=== PATIENT | female | born 1940 | race Caucasian/White ===

== ENCOUNTER → 2017-01-30 | Outpatient (CLI) | payer OTHER, BC ==
[~2017-01-30] VITALS: Ht 157.5 cm; Wt 76.2 kg
[~2017-01-30] MED LIST: ACETAMINOPHEN325 M1 PO; ADIPEX-P37.5 M1 PO; ASPIR 8181 MG PO; ASPIRIN EC81 M1 PO; ATENOLOL 100MG100 MG PO; BENTYL 10 MG CA10 M1 PO; BENTYL10 MG PO; BRILINTA90 MG PO; CARVEDILOL12.5 MG PO; CHLORTHALIDONE25 MG PO; CYTOMEL 25 MCG25 MC1 PO; CYTOMEL 25 MCG25 MCG PO; CYTOMEL50 MCG PO; GLUCOPHAGE500 MG PO; HYDROCHLOROTHIA25 M1 PO; HYDROCODON-ACE1 EAC7 PO; HYDROCODONE-AP1 EAC6 PO; KLOR-CON 1010 MEQ PO; KLOR-CON M2020 MEQ PO; LASIX 20 MG TAB20 MG PO; LUTEIN6 M1 PO; MELOXICAM7.5 MG PO; MULTIVITAMINS1 EAC6 PO; MULTIVITAMINS1 EAC7 PO; NABUMETONE 500500 M1 PO; NEURONTIN 300300 M1 PO; OMEGA-31000 M1 PO; OMEPRAZOLE 20 M20 M1 PO; PRAVASTATIN SOD40 MG PO; PROBIOTIC1 EAC1 PO; RAMIPRIL5 MG PO; REVATIO20 MG PO; SLOW-MAG64 M1 PO; TRAMADOL 50 MG50 MG PO; TUMS CHEWA500 MG/11 PO; VITAMIN B-12 PO; VITAMIN B12-FO1 EAC1 PO; VITAMIN D-32000 UNIT PO; VITAMIN D2000 UNIT PO; VITAMIN D35000 UNI1 PO
--- NOTE | ~2017-01-30 | HPC ---
[facility] [place] [address] PAIN MANAGEMENT CONSULTATION Name: ASMITA OSORIO Room #: [facility] [id number] Admission: 01/30/17 Attend Phys: Bonifacio Kc DO Discharge: Date of : 41 Report #: [id number] THIS REPORT FOR: //name// CC: Damien Horn MD DATE OF SERVICE: 01/30/2017 REFERRING PHYSICIAN: Damien Lomeli M.D. CHIEF COMPLAINT: Low back pain, right lower extremity pain and paresthesias. HISTORY OF PRESENT ILLNESS: As you know, the patient is a 76-year-old female returning in followup visit reporting pain score 3-4/10, states pain her pain is chronic in nature, describes pain as aching, exacerbated with standing, improves with medications and rest. She returns today in followup visit to discuss treatment options. As you are aware, the patient suffers from symptomatic lumbar radiculopathy secondary to progressively worsening spinal stenosis of the lumbar spine. We have discussed with the patient treatment options over a period of approximately 5 years. She returns today in followup visit with recurrence of symptoms for which she wishes to discuss treatment options. She has been doing fairly well with hydrocodone, gabapentin, and nabumetone therapy. She returns requesting refill on these medications. She also wishes to discuss whether or not new options for treatment are available including possibility of surgical options. She returns to discuss these today and receive refills on medications. ALLERGIES: No known drug allergies. CURRENT MEDICATIONS: Hydrocodone, nabumetone, gabapentin, cholecalciferol, phentermine, potassium chloride, hydrochlorothiazide, metformin, omega 3 fish oil, Lutein, pravastatin, omeprazole, dicyclomine, aspirin, atenolol and Brilinta. SOCIAL HISTORY: The patient denies tobacco, alcohol, IV or illicit drug use. She has been retired, retired almost 22 years ago, unaccompanied today. IMAGING: No new imaging available. PHYSICAL EXAMINATION: VITAL SIGNS: Blood pressure 139/62, pulse 64, respiratory rate 16, unlabored. The patient is 97% on room air, height 5 feet 2 inches tall, weighs 168 pounds, BMI calculated 30.7. GENERAL: Well developed, well nourished, well hydrated 76-[place] [address] PAIN MANAGEMENT CONSULTATION Name: ASMITA OSORIO Room #: REG CLI [place]#: [id number] Admission: 01/30/17 Attend Phys: Bonifacio Kc DO Discharge: Date of : 41 Report #: [id number] appearing her stated age, placing current pain score 3-4/10. HEENT: Normocephalic, atraumatic. Pupils equal, round, reactive to light. Extraocular muscles are intact. Sclerae nonicteric without injection. NEUROLOGIC: Cranial nerves 2-12 grossly intact. Speech fluent. The patient deemed a good historian. LUNGS: Clear. No wheeze, rhonchi or rales. CARDIOVASCULAR: Regular. No appreciable gallop or rub. ABDOMEN: Soft, mildly obese, normoactive bowel sounds. EXTREMITIES: Show no clubbing, no cyanosis, no edema. MUSCULOSKELETAL: Lower extremity strength appears equal and symmetrical 5/5, some giveaway strength noted with hip flexion, knee extension on the right when compared to the left. Seated straight leg raising negative. Supine straight leg raising mildly positive right. Hector's test negative. Modified Gaenslen's positive for axial low back pain. Muscle bulk and tone equal and symmetrical. Ankle clonus negative. Babinski is negative. Gait antalgic favoring right lower extremity over left. ASSESSMENT: 1. Symptomatic lumbar radiculopathy. 2. Spinal stenosis of lumbar spine. 3. Displacement of lumbar intervertebral disk with radiculopathy. 4. Lumbosacral spondylosis with radiculopathy. 5. Lumbar degeneration. 6. Chronic intractable pain. PLAN: 1. The patient has returned today in followup visit where we have discussed treatment options for lumbar radicular pain secondary to spinal stenosis. It is felt that her continued right lower extremity symptoms are due to progressively worsening spinal stenosis. We have discussed with the patient our concerns about the progression of this disease and her increasing pain. At present, she feels she is doing fairly well, requesting medication management. We did discuss other options including spinal cord stimulator therapy, surgical options with the patient today. She is wishing to continue medication management at this juncture, but may consider the spinal cord stimulator and even surgical options if her pain does not improve with more conservative treatment. 2. The patient was provided a prescription of hydrocodone 5/325 one tab p.o. q. 8 hours p.r.n. for pain. I have given the patient #60, releases of today, 4 weeks from today, 2 months' worth of medication. I would like to see her back in 2 months to determine if interventional treatments might be necessary or possible referral for surgery. 3. The patient was provided refill prescription on gabapentin. We have increased her dose in hopes of improving pain. She will increase the dose as tolerated, increasing 300 mg every 7 days to reach better efficacious level and reduce her pain. She will contact our clinic once she has reached the level of medication that provides good analgesia. No major side effects. She was [facility] [place] [address] PAIN MANAGEMENT CONSULTATION Name: JOASMITA M [facility] [id number] Admission: 01/30/17 Attend Phys: Bonifacio Kc DO Discharge: Date of : 41 Report #: [id number] watched for side effects of somnolence, decreased mental acuity, disorientation, confusion with the use of this medication. 4. The patient will continue on nabumetone 500 mg dose 1 tab p.o. b.i.d. I have given the patient #120 tablets, three months' worth of medication. She is sending this off to her mail order. 5. We will see the patient back in followup visit on an as needed basis for interventional treatments and discuss further spinal cord stimulator therapy and even surgical options. <ELECTRONICALLY SIGNED> By: Bonifacio Kc DO 02/07/17 0937 [id number] [id number] Bonifacio Kc DO /nt
[2017-01-30 13:50] VITALS: BP 139/62
== END | disposition home or self-care (01) ==
LOC: PAIN 06:53
DX: M51.16 Intervertebral disc disorders with radiculopathy, lumbar region (principal); M48.06 Spinal stenosis, lumbar region; M47.27 Other spondylosis with radiculopathy, lumbosacral region; G89.29 Other chronic pain

== ENCOUNTER → 2017-10-16 | Outpatient (CLI) | payer OTHER, BC ==
[~2017-10-16] VITALS: Ht 157.5 cm; Wt 77.9 kg
[~2017-10-16] MED LIST changes: +DICLOFENAC SOD50 M1 PO; +LOPERAMIDE 2 MG2 M1 PO
--- NOTE | ~2017-10-16 | HPC ---
[facility] [place] [address] PAIN MANAGEMENT CONSULTATION Name: ASMITA OSORIO Room #: REG [facility].#: [id number] Admission: 10/16/17 Attend Phys: Bonifacio Kc DO Discharge: Date of : 41 Report #: [id number] THIS REPORT FOR: //name// CC: Damien Horn MD DATE OF SERVICE: 10/16/2017 REFERRING PHYSICIAN: Kenyon Horn M.D. CHIEF COMPLAINT: Low back pain, right lower extremity pain with paresthesias. HISTORY OF PRESENT ILLNESS: As you know, the patient is a 77-year-old female with longstanding history of low back pain, right lower extremity pain with paresthesias. The patient, as you are aware, suffers from multifactorial spinal stenosis. She returns today in followup visit, reporting pain levels of 5-9/10, states pain begins in the low back, radiates down the right leg. She is now experiencing left hip and buttock pain as well that started to progressively worsen and originated spontaneously. She describes the pain as aching, sharp and intermittent, exacerbated with standing, getting in and out of a chair and tends to be worse in the morning hours. She states medications, the use of hydrocodone and Tylenol appears to improve pain. She has been referred back to our clinic to discuss options for evaluation and treatment. She denies new injury or new trauma that led to progression of pain. ALLERGIES: No known drug allergies. CURRENT MEDICATIONS: Multivitamin, carvedilol, Lutein, dicyclomine, furosemide, ramipril, Revatio, lactobacillus, gabapentin, nabumetone, hydrocodone and Imodium. SOCIAL HISTORY: The patient denies tobacco, alcohol, IV or illicit drug use. She retired 22 years ago, unaccompanied today. IMAGING DATA: No new imaging available. PQRS: The patient has a history of osteoarthritis. No rheumatoid arthritis. She does not have any risk of fall. She does not use an ambulating device. She is not on blood thinners. She does have a history of hypertension treated with medication. She has been on opioids for greater than 6 weeks. She has an opioid contract signed with [facility]. Her risk for opioid addiction is low. Functional assessment tool 41/70 indicating [id number] interference of [place] [id number] PAIN MANAGEMENT CONSULTATION Name: ASMITA OSORIO Room #: REG CL [place]#: [id number] Admission: 10/16/17 Attend Phys: Bonifacio Kc DO Discharge: Date of : 41 Report #: [id number] PHYSICAL EXAMINATION: VITAL SIGNS: Blood pressure 147/60, pulse 62, respiratory rate 16 and unlabored. The patient is 100% on room air. Height 5 feet 2 inches tall, weight 171.8 pounds and BMI calculated 31.4. GENERAL: Well-developed, well-nourished, well-hydrated 77-year-old female. She appears her stated age, placing pain score anywhere from 5-9/10 depending on activity. HEENT: Normocephalic and atraumatic. Pupils equal, round and reactive to light. Extraocular muscles are intact. Sclerae nonicteric without injection. NEUROLOGICAL: Cranial nerves 2 through 12 grossly intact. MUSCULOSKELETAL: Seated straight leg raising negative. Supine straight leg raising positive. Fabere's test negative. Modified Gaenslen's positive for axial back pain. Ankle clonus negative. Babinski is negative. ASSESSMENT: 1. Symptomatic lumbar radiculopathy. 2. Spinal stenosis of lumbar spine. 3. Displacement of lumbar intervertebral disk with radiculopathy. 4. Lumbosacral spondylosis with radiculopathy. 5. Lumbar degeneration. 6. Chronic intractable pain. PLAN: 1. The patient returns today in followup visit where we have discussed her activity levels as well as the efficacy of medication. The patient walks on a treadmill 4 times a day at a local gym at the [facility]. We applaud the patient for continuation of activities. This appears to be assisting in pain control. We have also discussed it with the patient's medication management. The following was discussed with the patient in regards to continuation of therapy. 2. We did receive a letter from the patient's counter top maker stating that they have made a change from nabumetone to diclofenac. The patient does feel that the diclofenac is providing some improvement but certainly not as effective as nabumetone. The patient can continue on the diclofenac. As we had discussed today all nonsteroidal anti-inflammatories where that there be aspirin all the way to the nabumetone therapy carries exactly same cardiovascular risk. The patient understands that she has some risk associated with the medication. She will continue the therapy as directed. 3. The patient will be continued on Neurontin 300 mg dose 1 tab p.o. q.a.m., 4 tabs p.o. at bedtime. I have given the patient #540 tablets, which is a 3-month prescription. 4. The patient was provided a prescription of Hamel 5/325 one tab p.o. b.i.d. #60 with releases of today, 4 weeks from today, 2 months' worth of medication. [place] [id number] PAIN MANAGEMENT CONSULTATION Name: KELLYRAJESHLISETTEASMITA M Room #: REG [facility] Mo#: [id number] Admission: 10/16/17 Attend Phys: Bonifacio Kc DO Discharge: Date of : 41 Report #: [id number] 5. We will see the patient back in followup visit on an as needed basis for medication therapy and interventional treatments. <ELECTRONICALLY SIGNED> By: Bonifacio Kc DO 10/24/17 1131 0711 [id number] Bonifacio Kc DO /nt
[2017-10-16 08:17] VITALS: BP 147/60
== END ==
LOC: PAIN 07:08
DX: M51.16 Intervertebral disc disorders with radiculopathy, lumbar region (principal); M48.061 Spinal stenosis, lumbar region without neurogenic claudication

== ENCOUNTER → 2018-02-12 | Outpatient (CLI) | payer OTHER, BC ==
[~2018-02-12] VITALS: Ht 157.5 cm; Wt 76.9 kg
--- NOTE | ~2018-02-12 | HPC ---
[facility] [address] [place] [address] PAIN MANAGEMENT CONSULTATION Name: ASMITA OSORIO Room #: REG [facility].#: [id number] Admission: 02/12/18 Attend Phys: Bonifacio Kc DO Discharge: Date of : 41 Report #: [id number] THIS REPORT FOR: //name// CC: Damien Horn MD DATE OF SERVICE: 02/12/2018 REFERRING PHYSICIAN: Kenyon Horn MD CHIEF COMPLAINT: Low back pain, right lower extremity pain and paresthesias. HISTORY OF PRESENT ILLNESS: As you know, the patient is a very pleasant 77-year-old female, who returns today in followup visit with pain level of 2/10. She returns requesting refill on medications. She feels medications are working beneficially, providing upwards of 80% improvement in overall pain. She indicates pain is in the low back, left buttock area, it is chronic in nature, aching, sharp and intermittent in sensation, exacerbated with standing, getting up out of a chair, tends to be worse in the morning and progressively improves with activity. Medications tend to improve pain. She returns today in followup visit requesting refill on medications to continue analgesic benefit. The patient returns stating no changes in medical history since our last visit. No new injury and no new traumas. ALLERGIES: No known drug allergies. CURRENT MEDICATIONS: Diclofenac sodium 50 mg dose 3 times a day, gabapentin 300 mg in the morning and 1500 mg at night, hydrocodone 5/325 one tab p.o. b.i.d. p.r.n. pain, Imodium 2 mg p.r.n., lactobacillus 1 tab per day, Revatio 20 mg 3 times a day, ramipril 5 mg per day, furosemide 20 mg per day, dicyclomine 10 mg per day, Lutein 6 mg per day, carvedilol 12.5 mg 3 times per day, vitamin B12 2500 mcg per day, omega-3 fish oil 1 tab per day, pravastatin 40 mg per day, and aspirin 81 mg per day. SOCIAL HISTORY: The patient denies tobacco, alcohol, IV or illicit drug use. She retired nearly 22 years ago. She is unaccompanied at today's visit. IMAGING: No new imaging available. PQRS: The patient has osteoarthritis, no rheumatoid arthritis. She places current pain intensity 2/10. She is not a fall risk and has not had a fall in the last 3 months. She is not on a blood thinner. She is treated for hypertension. She has been on opioids for greater than 6 weeks and has contract with [facility]. She has a low assessment for opioid abuse. Functional assessment tool indicating mild interference of daily activities [address] [address] PAIN MANAGEMENT CONSULTATION Name: ASMITA OSORIO [facility] [id number] Admission: 02/12/18 Attend Phys: Bonifacio Kc DO Discharge: Date of : 41 Report #: [id number] to pain. PHYSICAL EXAMINATION: VITAL SIGNS: Blood pressure 121/56, pulse 61, respiratory rate 16 and unlabored, the patient is 94% on room air, height 5 feet 2 inches tall, weight 169.6 pounds, and BMI calculated 31. GENERAL: Well-developed, well-nourished, well-hydrated 77-year-old female, appearing stated age, placing current pain score at 2/10. HEENT: Normocephalic, atraumatic. Pupils are equal, round, reactive to light. Extraocular muscles are intact. Sclerae are nonicteric without injection. NEUROLOGIC: Cranial nerves 2-12 are grossly intact. Speech is fluent. The patient deemed a good historian. EXTREMITIES: Show no clubbing, no cyanosis, and no edema. MUSCULOSKELETAL: Lower extremity strength remains symmetrical 5/5, muscle bulk and tone equal and symmetrical. Seated straight leg raising negative. Supine straight leg raising remains mildly positive on the left. Hector's test negative. Modified Gaenslen's positive for axial low back pain. Intact to light touch from L1 through S2 dermatomes. ASSESSMENT: 1. Symptomatic lumbar radiculopathy. 2. Spinal stenosis of lumbar spine. 3. Displacement of lumbar intervertebral disk with radiculopathy. 4. Lumbosacral spondylosis with radiculopathy. 5. Lumbar degeneration. 6. Chronic intractable pain. PLAN: 1. The patient returns today in followup visit for continuation of medication therapy. The patient feels medications are working quite well for pain control. She is reporting 80% improvement in overall pain, no side effects to the medication. She requests refill on medications to be provided today. She feels they are working well for pain control and has had no side effects of somnolence, decreased mental acuity, disorientation, confusion, dyspepsia, worsening of blood pressure or lower extremity edema, typical findings with the medication she is currently on. 2. The patient was provided a prescription of gabapentin 300 mg dose 1 tab in the morning and 5 tabs at night, she was given #540, which is a 3-month prescription with 2 refills. 3. The patient was provided a refill prescription on diclofenac sodium 50 mg dose 1 tab p.o. t.i.d., #90, I have provided the patient with 5 refills. 4. The patient was provided a prescription of hydrocodone 5/325 one tab p.o. b.i.d., #60, release dates of today, 4 weeks from today, 8 weeks from today, 3 months' worth of medication. 5. We will see the patient back in followup visit on an as needed basis for [address] [address] PAIN MANAGEMENT CONSULTATION Name: ASMITA OSORIO Room #: REG CLI Esther#: [id number] Admission: 02/12/18 Attend Phys: Bonifacio Kc DO Discharge: Date of : 41 Report #: [id number] refill on medications, interventional treatments can be offered at that time if the patient needs, she may return earlier to discuss treatment options. <ELECTRONICALLY SIGNED> By: Bonifacio Kc DO 02/19/18 0817 0731 [id number] Bonifacio Kc DO /nt
[2018-02-12 09:14] VITALS: BP 121/56
== END ==
LOC: PAIN 06:41
DX: M47.27 Other spondylosis with radiculopathy, lumbosacral region (principal)

== ENCOUNTER → 2018-09-03 | Outpatient (CLI) | payer OTHER, BC ==
[~2018-09-03] VITALS: Ht 157.5 cm; Wt 77.1 kg
[~2018-09-03] MED LIST changes: +DICLOFENAC SOD50 MG PO; +TIROSINT25 MCG PO
--- NOTE | ~2018-09-03 | HPC ---
[facility] [place] [address] PAIN MANAGEMENT CONSULTATION Name: ASMITA OSORIO Room #: REG [facility]#: [id number] Admission: 09/03/18 Attend Phys: Rosey Lee Discharge: Date of : 42 Report #: [id number] THIS REPORT FOR: //name// CC: Rosey Lee Damien Lomeli DATE OF SERVICE: 09/03/2018 CHIEF COMPLAINT: Low back pain, right lower extremity pain and paraesthesias. HISTORY OF PRESENT ILLNESS: The patient is a very pleasant 78-year-old female that returns to the pain clinic today for refill of her medications. She tells me that she has been having some increasing discomfort in the back of her right leg that radiates also into her groin. She does tell me that she has been out of her pain medicine and her anti-inflammatory for the last 3-4 weeks, thinks may be this may be a cause, but she feels like this is a new pain to her. She continues to have low back pain also, rating her pain score at 6 today. She tells me it is worse when she gets out of the chair or sitting for a prolonged period of time. She does do physical therapy exercises at home. She does walk on a treadmill and is very active and this does not seem to bother her leg. It is just when she is getting out of the chair that is the worst. The patient tells me she does not have any problems with constipation or daytime sleepiness. Would like a refill of her medications today. ALLERGIES: AMOXICILLIN. CURRENT LIST OF MEDICATIONS: Levothyroxine sodium 25 mcg, gabapentin 300 mg as needed, diclofenac 50 mg daily, hydrocodone 5/325, Imodium 2 mg as needed, lactobacillus daily, Revatio 20 mg 3 times a day, ropinirole 5 mg daily, Lasix 20 mg daily, Bentyl 10 mg 4 times a day, Lutein 6 mg tablets twice a day, carvedilol 12.5 mg 3 tablets daily, vitamin B12, fish oil, aspirin and pravastatin 40 mg at bedtime. PQRS: Today, 1. She has a history of osteoarthritis in her right lower extremities and denies rheumatoid arthritis. 2. Height is 5 feet 2 inches, weight is 170, BMI is 31.1. 3. Vital signs: Blood pressure 156/77, pulse is 70, respirations 16, oxygen sat is 95%, pain score is 6/10. 4. Fall risk. She denies dizziness. Does not need up walking or standing, has not fallen in the last 3 months. 5. She denies blood thinners, but does take antihypertensive medicines. 6. Her opioid therapy is greater than 6 weeks. Therefore, an opioid signed contract is on the chart. 7. Risk assessment tool is low. Functional assessment is 36/70. 8. She denies recreational drug use. Does not [place] [address] PAIN MANAGEMENT CONSULTATION Name: ASMITA OSORIO Room #: REG [facility] [place]#: [id number] Admission: 09/03/18 Attend Phys: Rosey Lee Discharge: Date of : 42 Report #: [id number] socially with alcohol. The patient has filled her prescriptions at [facility]. She tells me that she has been filling all of them there, though the prescription monitoring system does not have her filling any hydrocodone since January. The patient does inform me though that she has taken all of her hydrocodone scripts there and she has used them, so unsure why they are not reporting The patient does tell me she safeguards her medications. PHYSICAL EXAMINATION: GENERAL: This is a well-developed, well-nourished, well-hydrated 78-year-old female who appears her stated age, placing her pain score today at 6/7. HEENT: Normocephalic, atraumatic. Pupils are equal, round and reactive to light. Extraocular muscles are intact. NEUROLOGIC: Speech is fluent. The patient is a good historian. EXTREMITIES: No clubbing, no cyanosis, no edema. MUSCULOSKELETAL: Lower extremity strength remains symmetrical at 5/5 with equal muscle tone and symmetrical. Seated straight leg raising is negative. The patient does complain of pain from sitting to standing in her right groin. The patient's walk is normal. ASSESSMENT: 1. Systematic lumbar radiculopathy. 2. Spinal stenosis of lumbar spine. 3. Displacement of lumbar intravertebral disk with radiculopathy. 4. Lumbosacral spondylosis with radiculopathy. 5. Lumbar degeneration. 6. Chronic intractable pain. We reviewed the fact that opiate medications are being used to provide analgesia adequate to support activities of daily living, not attempting to achieve a specific pain score on the 0-10 Visual Analog Scale. The current opiate medications are providing sufficient analgesia to allow the patient to participate in activities of daily living. The patient is not exhibiting any aberrant behavior suggestive of drug diversion. The patient is not having any adverse reactions to medications. The patient is not suffering from daytime somnolence or mental acuity changes. The patient is managing opiate-induced constipation with appropriate aemc-vqq-samedxf agents and dietary considerations. The patient was counseled on concern for caution with operating a motor vehicle while using opiate medications. A physical exam was performed and the patient's functional status was evaluated. All patients with back pain were advised against the bed rest greater than 4 days and were advised to return to normal activities. Pain score assessment was noted and the treatment plan was reviewed with the patient. All current medications, both prescribed and OTC were reviewed and reconciled on the [address] [place] [address] PAIN MANAGEMENT CONSULTATION Name: ASMITA OSORIO Room #: REG [facility].#: [id number] Admission: 09/03/18 Attend Phys: Rosey Lee Discharge: Date of : 42 Report #: [id number] electronic medical record. Tobacco screening was accomplished and smoking cessation was advised when indicated. BMI was noted and diet/exercise modification was recommended for all patients following outside normal parameters. I reviewed with the patient today their responsibilities to safeguard prescription medications, reviewed their responsibility to utilize medications only as prescribed by the physician. They are to seek and receive pain medications only from 1 physician group ( [facility]). They are to use 1 pharmacy and keep the clinic informed if they change pharmacies. Their responsibilities include making followup visits in a timely fashion and to avoid abrupt discontinuation of medication usage. Their responsibilities further include bringing their medications (bottles from the pharmacy with residual pills) to the visit for possible confirmation of pill counts and the patient understands it is their responsibility to submit to random drug screens to ensure both that the medications prescribed are present, and that no other controlled substances are present. All prescriptions provided today were generated electronically. PLAN: 1. The patient returned to the clinic today for continuation of her medicine therapy. The patient tells me that the medicines have been working quite well, though she has been out for 3-4 weeks and has noted an increase in her pain in her right groin and posterior leg. The patient tells me she is unsure of this because she has been out of her medicine or if her back pain has been getting worse. The patient has not had any new MRI since 2011, but after discussion, we decided that the patient will restart her medications to see if the symptoms improve. If they do not, then she will come back for a possible epidural injection with Dr. Bonifacio Kc. 2. The patient is agreeable with this plan of care, so scripts given for diclofenac 50 mg 3 times a day, #90 with 5 refills; gabapentin 300 mg 1 in the morning and 5 at night for a total of 540 with 3 refills as a 3-month supply and hydrocodone 60 tablets of 5/325 for today, for an 8-week. 3. The patient will continue her walking and physical therapy that she does at home to see also if these symptoms may improve. We will see the patient back on a followup visit for medicines as needed or earlier for interventional treatments if she decides that they may be needed. 4. The patient care given in collaboration today with Dr. Bonifacio Kc. <ELECTRONICALLY SIGNED> By: Rosey Lee 09/04/18 0714 [id number] Rosey Lee /nt
[2018-09-03 08:11] VITALS: BP 156/77
== END ==
LOC: PAIN 05:45
DX: M47.27 Other spondylosis with radiculopathy, lumbosacral region (principal); M51.16 Intervertebral disc disorders with radiculopathy, lumbar region; M48.061 Spinal stenosis, lumbar region without neurogenic claudication; G89.4 Chronic pain syndrome; Z79.899 Other long term (current) drug therapy

== ENCOUNTER → 2019-02-04 | Outpatient (CLI) | payer OTHER, BC ==
[~2019-02-04] VITALS: Ht 157.5 cm; Wt 75.8 kg
[~2019-02-04] MED LIST changes: +CELEBREX 200 M200 MG PO
--- NOTE | ~2019-02-04 | HPC ---
[facility] [address] [place] [address] PAIN MANAGEMENT CONSULTATION Name: ASMITA OSORIO [id number] Admission: 02/04/19 ������������������ Attend Phys: Bonifacio Kc DO Discharge: ������������������ Date of : 42 Report #: [id number] THIS REPORT FOR: //name// CC: Damien Horn MD DATE OF SERVICE: 02/04/2019 REFERRING PHYSICIAN: Damien Lomeli M.D. CHIEF COMPLAINT: Low back pain, right lower extremity pain with paresthesias and bilateral knee pain. HISTORY OF PRESENT ILLNESS: As you know, the patient is a very pleasant 78-year-old female returning in followup visit indicating continued low back pain, right lower extremity pain but new onset of bilateral knee pain. She is also complaining of bilateral lower extremities weakness and trepidation with climbing stairs or doing any activities that require lifting due to her concern of weakness. She denies injury or trauma or any changes in medical history since our last visit. Her pain is rated around 5-6/10, which is fairly typical for her. She returns today in followup visit to discuss treatment options. ALLERGIES: AMOXICILLIN. CURRENT MEDICATIONS: Hydrocodone 5/325 one tab p.o. q. 8 hours p.r.n. for pain, gabapentin 300 mg the 1 tab in the morning and 5 tabs at night, diclofenac sodium 50 mg t.i.d., levothyroxine 25 mcg per day, Imodium 2 mg p.r.n., lactobacillus 1 tab per day, Revatio 20 mg 3 times a day, ramipril 5 mg per day, Lasix 20 mg per day, dicyclomine 20 mg 4 times a day, Lutein 2 mg once a day, carvedilol 12.5 mg once a day, vitamin B12 2500 mcg per day, omega-3 fish oil 1 tab per day, pravastatin 40 mg per day and aspirin 81 mg per day. SOCIAL HISTORY: The patient denies tobacco, alcohol or IV or illicit drug use. She is retired, retired years ago, unaccompanied today. IMAGING DATA: There is no new imaging available. PQRS: The patient has osteoarthritic changes of the bilateral shoulders, bilateral hands, lumbar spine, bilateral hips and bilateral knees. No rheumatoid arthritis. She is placing pain intensity 5-6/10. She is not a fall risk, has not had a fall in the last 3 months. She is not on blood thinners but is treated for hypertension. She is on chronic opioids with a low opioid addiction potential. Her pain impact score 36/70 indicating moderate interference of [place] [address] PAIN MANAGEMENT CONSULTATION Name: ASMITA OSORIO Room #: REG [facility].#: [id number] Admission: 02/04/19 ������������������ Attend Phys: Bonifacio Kc DO Discharge: ������������������ Date of : 42 Report #: [id number] PHYSICAL EXAMINATION: VITAL SIGNS: Blood pressure 164/73, pulse 65 and respiratory rate 16 and unlabored. The patient is 98% on room air. Height 5 feet 2 inches tall, weight 167 pounds and BMI calculated 30.5. GENERAL: Well-developed, well-nourished and well-hydrated 78-year-old female appearing stated age, placing pain score 5-6/10. HEENT: Normocephalic and atraumatic. Pupils equal, round and reactive to light. Extraocular muscles are intact. Sclerae nonicteric without injection. NEUROLOGICAL: Cranial nerves 2 through 12 grossly intact. Speech is fluent. EXTREMITIES: Show no clubbing, no cyanosis and no edema. MUSCULOSKELETAL: The patient has pain with active and passive range of motion of bilateral knees. There is noted mild popliteal fullness likely Jha cysts bilaterally. She does have crepitus with movement of the left knee, negative right. There is mild laxity of the lateral collateral and medial collateral ligaments. Drawer tests are negative bilaterally. Lower extremity strength is symmetrical 5/5. She does have some giveaway strength noted with hip flexion and knee extension bilaterally due to pain. Muscle bulk and tone equal and symmetrical. Gait is antalgic. She does have a wide-based gait, but stance is normal. ASSESSMENT: 1. Bilateral knee pain. 2. Bilateral knee osteoarthritis. 3. Lumbar radiculopathy. 4. Progressively worsening spinal stenosis of lumbar spine. 5. Displacement of lumbar intervertebral disk with radiculopathy. 6. Lumbosacral spondylosis with radiculopathy. 7. Lumbar degeneration. 8. Chronic intractable pain. PLAN: 1. The patient returns today in followup visit concerning 2 different areas of problems initially she was discussing bilateral knee pain, does appear the patient is suffering from worsening arthritic changes of the bilateral knees. There is noted crepitus with movement of the left knee. She has been advised in the past total knee arthroplasties would be necessary. She has undergone some intra-articular knee injections with transient improvement in symptoms. It does appear that the degradation of the knee has continued of both left and right, left worse than right. We discussed the options for treatment, which would include physical therapy, stretching exercises, core strengthening and continued use of the knees as long as possible. We discussed medication management and applying topical agents to the area such as the diclofenac gel or rotating her nonsteroidal anti-inflammatory from diclofenac to something like Celebrex. We also discussed intra-articular knee injections. Total knee arthroplasties and some of the new technology such stem cell injections. She wishes to make [facility] [address] [address] PAIN MANAGEMENT CONSULTATION Name: ASMITA OSORIO Room #: REG [facility].#: [id number] Admission: 02/04/19 ������������������ Attend Phys: Bonifacio Kc DO Discharge: ������������������ Date of : 42 Report #: [id number] adjustments in medication management at this point and we will consider her more aggressive treatment options if necessary. 2. In regards to the patient's lumbar radiculopathy and spinal stenosis, she is experiencing perceived weakness in the lower extremities. The strength itself is 5/5. Muscle bulk and tone is equal and symmetrical, though the patient is perceiving weakness more frequently. This is fairly typical for spinal stenosis as the patients typically feel weaker they have, proprioception issues initially followed by a pain, discomfort and then ultimately some atrophy of the musculature, which is the typical trajectory with progressively worsening spinal stenosis and we discussed this with the patient today. We would recommend if the patient wishes to begin a physical therapy and strengthening program for the lower extremities, this will help return some of the patient's confidence in climbing stairs and being more active and this will then allow the patient to maintain use of the legs more readily. Ultimately, I do feel the patient will need surgical option to decompress the spinal stenotic areas, but we were wishing to delay this option if at all possible. 3. We will rotate the patient from diclofenac sodium to Celebrex. She is to discontinue her diclofenac at this time and in place, we will use Celebrex 200 mg dose 1 tab p.o. b.i.d. It is typical for us to rotate patients on nonsteroidal anti-inflammatories in hopes of providing better benefit with potential rotation back in approximately 3-4 months. We will adjust the patient's medication today. She will watch for side effects of dyspepsia, worsening blood pressure and lower extremity edema. If she notes any of these side effects, contact our clinic immediately after discontinuing the therapy. 4. The patient was provided a referral to physical therapy twice a week for 6 weeks, this will be for her spinal stenosis and proceed lower extremity weakness. We are requesting that the patient obtain information on how to strengthen her lower extremities in preparation for transitioning to a local gym where she has a membership. She will begin the physical therapy as quickly as possible. 5. We will see the patient back in followup visit on an as needed basis for further discussions treatments. We are hopeful the adjustments today will provide the patient with benefit. ��������������������������������������������� ���������������������������������������� By: ��������������������������������������������� [id number] Bonifacio Kc DO /nt
[2019-02-04 08:45] VITALS: BP 164/73
--- NOTE | 2019-02-04 08:59 | NUR ---
Pain Clinic Assessment: 1. History of Osteoarthritis: Right Lower Extremity Left Lower Extremity spine History of Rheumatoid Arthritis: Not Applicable 2. Height: 5 ft. 2 in. 157.5 cm. Weight: 167.0 lb. oz. 75.751 kg. Patient's BMI: 30.5 3. Vital Signs: BP: 164/73 Pulse: 65 Resp: 16 Temp: 02 Sat: 98 ECG Mon: 4. Pain Intensity: 5-6 5. Fall Risk: Dizziness: N Needs help standing or walking: N Fallen in the last 3 months: N Fall risk comments: 6. Patient on Blood Thinner: None 7. History of Hypertension: Y 8. Opioid Therapy greater than 6 weeks: Y Opiate Contract Signed: 09/05/16 9. Risk Assessment Tool Provided: 0-low 10. Functional Assessment Tool: 11. Recreational Drug Use: Never Drug Type: Tobacco Use: Never Smoker Tobacco Type: Amount or Packs/day: How Many Years: Alcohol Use: Yes Frequency: Weekly Quant: 1
== END ==
LOC: PAIN 06:42
DX: M17.0 Bilateral primary osteoarthritis of knee (principal); M51.16 Intervertebral disc disorders with radiculopathy, lumbar region; M47.27 Other spondylosis with radiculopathy, lumbosacral region; G89.4 Chronic pain syndrome; Z88.0 Allergy status to penicillin; Z79.899 Other long term (current) drug therapy